=== PATIENT | male | born 1995 | race Hispanic/Latino ===

== ENCOUNTER 2018-02-28 07:53 | Emergency (ER) | payer OTHER ==
[2018-02-28 08:03] VITALS: PULSE 53; TEMP 98.1; O2SAT 100; BMI 24.7
[2018-02-28] MEDS ORDERED: Alum-Mag Hydrox-Simethicone Susp (30 mL) PO STA (08:26)
--- NOTE | 2018-02-28 08:27 | ED PDOC ---
Arrival/HPI - General Chief Complaint: Chest Pain Time Seen by Provider: 02/28/18 08:03 Historian: Patient - History of Present Illness Narrative History of Present Illness (Text): 02/28/18 08:26 22 year old male, whose past medical history includes appendectomy and heart burn, presents to the emergency department complaining of intermittent chest discomfort for the past couple of years that worsened yesterday. Patient describ es the pain as a stabbing sensation that worsens when breathing. Patient denies any radiation, but states it woke him up yesterday. Patient reports taking heart burn medication and TUMS with minimal relief. Patient reports a headache yesterday that resolved, bitter taste in the back of his mouth, and constant episodes of diarrhea, but denies any trauma, fever, chills, shortness of breath, nausea, vomiting, urinary symptoms, back pain, neck pain, headache currently, dizziness, or any other complaints. PMD: None Time/Duration: Other (couple years worsen yesterday) Symptom Onset: Sudden Symptom Course: Worsening Quality: Stabbing Activities at Onset: Sleeping Context: Home Past Medical History - Provider Review Nursing Documentation Reviewed: Yes - Past History Past History: No Previous - Infectious Disease Hx of Infectious Diseases: None - Tetanus Immunization Tetanus Immunization: Unknown - Cardiac Hx Cardiac Disorders: No - Pulmonary Hx Respiratory Disorders: No - Neurological Hx Neurological Disorder: No - HEENT Hx HEENT Disorder: No - Renal Hx Renal Disorder: No - Endocrine/Metabolic Hx Endocrine Disorders: No - Hematological/Oncological Hx Blood Transfusions: No Hx Blood Transfusion Reaction: No - Integumentary Hx Dermatological Disorder: No - Musculoskeletal/Rheumatological Hx Musculoskeletal Disorders: No Hx Falls: No - Gastrointestinal Hx Gastrointestinal Disorders: Yes (APPENDICITIS 02-11-15) - Genitourinary/Gynecological Hx Genitourinary Disorders: No - Psychiatric Hx Psychophysiologic Disorder: No Hx Anxiety: No Hx Bipolar Disorder: No Hx Depression: No Hx Emotional Abuse: No Hx Hallucinations: No Hx Panic Disorder: No Hx Post Traumatic Stress Disorder: No Hx Psychosis: No Hx Physical Abuse: No Hx Schizophrenia: No Hx Sexual Abuse: No Hx Substance Use: No - Surgical History Hx Appendectomy: Yes - Anesthesia Hx Anesthesia Reactions: No Hx Malignant Hyperthermia: No Family/Social History - Physician Review Nursing Documentation Reviewed: Yes Family/Social History: Diabetes Smoking Status: Never Smoked Hx Alcohol Use: No Hx Substance Use: No Allergies/Home Meds Allergies/Adverse Reactions: Allergies No Known Allergies Allergy (Verified 02/28/18 08:03) Home Medications: Home Meds Medication Instructions Recorded Confirmed No Known Home Med 02/28/18 02/28/18 Review of Systems - Physician Review All systems were reviewed & negative as marked: Yes - Review of Systems Constitutional: absent: Fevers, Other (Chills) ENT: Other (bitter taste in the back of his mouth) Respiratory: absent: SOB Cardiovascular: Chest Pain Gastrointestinal: Diarrhea. absent: Abdominal Pain, Nausea, Vomiting Genitourinary Male: absent: Dysuria, Frequency, Hematuria Musculoskeletal: absent: Back Pain, Neck Pain Neurological: Headache. absent: Dizziness Physical Exam Vital Signs Reviewed: Yes Vital Signs Temp Pulse Resp BP Pulse Ox 02/28/18 08:01 98.1 F 53 L 17 132/72 100 Temperature: Afebrile Blood Pressure: Normal Pulse: Regular Respiratory Rate: Normal Appearance: Positive for: Well-Appearing, Non-Toxic, Comfortable Pain Distress: None Mental Status: Positive for: Alert and Oriented X 3 - Systems Exam Head: Present: Atraumatic, Normocephalic Pupils: Present: PERRL Extroacular Muscles: Present: EOMI Conjunctiva: Present: Normal Mouth: Present: Moist Mucous Membranes Neck: Present: Normal Range of Motion Respiratory/Chest: Present: Clear to Auscultation, Good Air Exchange. No: Respiratory Distress, Accessory Muscle Use Cardiovascular: Present: Regular Rate and Rhythm, Normal S1, S2. No: Murmurs Abdomen: No: Tenderness, Distention, Peritoneal Signs Back: Present: Normal Inspection Upper Extremity: Present: Normal Inspection. No: Cyanosis, Edema Lower Extremity: Present: Normal Inspection. No: Edema Neurological: Present: GCS=15, CN II-XII Intact, Speech Normal Skin: Present: Warm, Dry, Normal Color. No: Rashes Psychiatric: Present: Alert, Oriented x 3, Normal Insight, Normal Concentration Medical Decision Making ED Course and Treatment: 02/28/18 08:27 Impression: 22 year old male presents complaining of intermittent chest discomfort for the past couple of yesterday that woke up yesterday associated with constant episodes of diarrhea and a bitter taste to the back of his mouth. Chest pain non pleuritic given eintermittent pain. Chest pain w/ out cardiac risk factors. Christopher amezcua PERC out. Likely gerd like pain given time frame, hx of previous pain. NO abd pain. Plan: -- EKG -- Labs -- Chest X-ray -- Maalox, Motrin, Pepcid -- Reassess and disposition Progress Notes: 02/28/18 08:04 EKG shows NSR at 62 BPM with No STEMI. No brugada. Interpreted by me. 02/28/18 09:50 labs unremarkable. XR unremarkable pain improved. clear for d/c home- likely chest wall pain. - Lab Interpretations I have reviewed the lab results: Yes - RAD Interpretation Radiology Orders: 02/28/18 08:26 CHEST TWO VIEWS (PA/LAT) [RAD] Stat - EKG Interpretation Interpreted by ED Physician: Yes Type: 12 lead EKG - Scribe Statement The provider has reviewed the documentation as recorded by the Scribe Susu Rolle Provider Scribe Attestation: All medical record entries made by the Scribe were at my direction and personally dictated by me. I have reviewed the chart and agree that the record accurately reflects my personal performance of the history, physical exam, medical decision making, and the department course for this patient. I have also personally directed, reviewed, and agree with the discharge instructions and disposition. Disposition/Present on Arrival - Present on Arrival Any Indicators Present on Arrival: No History of DVT/PE: No History of Uncontrolled Diabetes: No Urinary Catheter: No History of Decub. Ulcer: No History Surgical Site Infection Following: None - Disposition Have Diagnosis and Disposition been Completed?: Yes Diagnosis: Chest wall pain Disposition: HOME/ ROUTINE Disposition Time: 09:53 Condition: GOOD Discharge Instructions (ExitCare): Chest Pain That Is Not Caused by the Heart (DC), Costochondritis (DC) Additional Instructions: FÁTIMA GIRON, thank you for letting us take care of you today. Your provider was Otto Strong and you were treated for CHEST PAIN / HEART BURN. The emergency medical care you received today was directed at your acute symptoms. If you were prescribed any medication, please fill it and take as directed. It may take several days for your symptoms to resolve. Return to the Emergency Department if your symptoms worsen, do not improve, or if you have any other problems. Please contact your doctor or call one of the physicians/clinics you have been referred to that are listed on the Patient Visit Information form that is included in your discharge packet. Bring any paperwork you were given at discharge with you along with any medications you are taking to your follow up visit. Our treatment cannot replace ongoing medical care by a primary care provider outside of the emergency department. Thank you for allowing the [facility] team to be part of your care today. If you had an X-Ray or CT scan: A Radiologist will review the ED reading if any change in treatment is needed we will contact you. If you had a blood, urine, or wound culture: It will take several days for the results, if any change in treatment is needed we will contact you. If you had an STI test: It will take 48 hours for the results. Please call after 1 week if you have not heard back. Referrals: Mario Quigley MD [Staff Provider] - Follow up with primary Bridgett Pablo MD [Medical Doctor] - Follow up with primary Avery Randhawa DO [Staff Provider] - Follow up with primary Forms: Te[employer] (Swazi)
[2018-02-28 09:01] LABS: MEAN CELL VOLUME 94.2 fl (80.0-105.0); MEAN CORPUSCULAR HEMOGLOBIN 33.4 pg (25.0-35.0); MEAN CORPUSCULAR HGB CONC 35.5 g/dl (31.0-37.0); MEAN PLATELET VOLUME 9.7 fl (7.0-11.0); RBC 4.79 10^6/uL (3.5-6.1); RED CELL DISTRIBUTION WIDTH 12.7 % (11.5-14.5); WHITE BLOOD COUNT 8.6 10^3/ul (4.5-11.0)
[2018-02-28 09:10] LABS: ALB/GLOB RATIO 1.4 (1.1-1.8); ALBUMIN 4.5 g/dL (3.0-4.8); ALT/SGPT 25 U/L (7-56); AST/SGOT 28 U/L (17-59); BLOOD UREA NITROGEN 15 mg/dL (7-21); CALCIUM 9.3 mg/dL (8.4-10.5); GFR NON-AFRICAN AMERICAN > 60; LIPASE 33 U/L (23-300)
--- NOTE | 2018-02-28 09:57 | RAD ---
Date of service: 02/28/2018 HISTORY: Chest pain. COMPARISON: No prior. TECHNIQUE: Chest PA and lateral FINDINGS: LUNGS: No active pulmonary disease. PLEURA: No significant pleural effusion identified. No pneumothorax apparent. CARDIOVASCULAR: Normal. OSSEOUS STRUCTURES: No significant abnormalities. VISUALIZED UPPER ABDOMEN: Normal. OTHER FINDINGS: None. IMPRESSION: No active disease.
[2018-02-28 10:20] VITALS: BP 117/60; RESP 20
--- NOTE | 2018-02-28 17:52 | CARD ---
APPROVED REPORT Date of service: 02/28/2018 EKG Measurement Heart [id number] <Conclusion> Normal sinus rhythm with sinus arrhythmia RSR' or QR pattern in V1 suggests right ventricular conduction delay Borderline ECG
== END 2018-02-28 10:18 | disposition home or self-care (01) ==
LOC: ED 07:53
DX: R07.89 Other chest pain (principal)